=== PATIENT | male | born 1955 ===

== ENCOUNTER 2019-07-21 06:00 | Outpatient (RCR) | payer BC, SELFPAY | END 2019-08-07 23:59 | disposition home or self-care (01) | LOC: TPT 06:00 | PROVIDERS: Referring Provider Nurse Practitioner Family; Visit Provider Nurse Practitioner Family | DX: M54.40 Lumbago with sciatica, unspecified side (principal) | CPT/HCPCS: 97032; 97110; 97112; 97161; 97530 ==

== ENCOUNTER 2019-08-08 06:00 | Outpatient (RCR) | payer BC, SELFPAY | END 2019-09-07 23:59 | disposition home or self-care (01) | LOC: TPT 06:00 | PROVIDERS: Referring Provider Nurse Practitioner Family; Visit Provider Nurse Practitioner Family | DX: M54.40 Lumbago with sciatica, unspecified side (principal) | CPT/HCPCS: 97035; 97110; 97140; 97164; 97530 ==